=== PATIENT | female | born 1980 | race Caucasian/White ===

== ENCOUNTER 2017-05-20 16:45 | Emergency (ER) | payer SELFPAY ==
[2017-05-20 16:49] VITALS: BP 138/80; PULSE 95; RESP 18; O2SAT 98; BMI 31.8
--- NOTE | 2017-05-20 17:05 | ED PDOC ---
Arrival/HPI - General Chief Complaint: Female Genitourinary Time Seen by Provider: 05/20/17 16:49 Historian: Patient - History of Present Illness Narrative History of Present Illness (Text): 05/20/17 16:50 36 y/o female, no significant pmh, nkda, c/o vaginal discharge and painful bump on the vaginal region x 4 days. Pt. stated that she is sexually active with her only with no condoms. Pt. has been having painful vaginal lesions down on the vaginal region, admits also been having foul odor vaginal discharge for the past 3 days, no pelvic or abdominal pain, no night sweat, no dizziness, no change in vision, no other medical or psychological complaints. Past Medical History - Provider Review Nursing Documentation Reviewed: Yes - Psychiatric Hx Substance Use: No Family/Social History - Physician Review Nursing Documentation Reviewed: Yes Family/Social History: Unknown Family HX Smoking Status: Never Smoked Hx Alcohol Use: No Hx Substance Use: No Allergies/Home Meds Allergies/Adverse Reactions: Allergies No Known Allergies Allergy (Verified 05/20/17 16:49) Review of Systems - Review of Systems Constitutional: absent: Fatigue, Fevers Eyes: absent: Vision Changes ENT: absent: Hearing Changes Respiratory: absent: SOB, Cough Cardiovascular: absent: Chest Pain Gastrointestinal: absent: Abdominal Pain, Diarrhea, Nausea, Vomiting Musculoskeletal: absent: Arthralgias, Back Pain Skin: Rash, Skin Lesions. absent: Pruritis, Laceration, Abscess, Ulcer, Cellulitis Neurological: absent: Headache, Dizziness, Focal Weakness Physical Exam Vital Signs Reviewed: Yes Vital Signs Temp Pulse Resp BP Pulse Ox 05/20/17 17:21 99.1 F 05/20/17 16:46 99.9 F H 95 H 18 138/80 98 Temperature: Afebrile Blood Pressure: Normal Pulse: Regular Respiratory Rate: Normal Appearance: Positive for: Well-Appearing, Non-Toxic, Comfortable Pain Distress: Mild Mental Status: Positive for: Alert and Oriented X 3 - Systems Exam Head: Present: Atraumatic, Normocephalic Pupils: Present: PERRL Extroacular Muscles: Present: EOMI Conjunctiva: Present: Normal Mouth: Present: Moist Mucous Membranes Neck: Present: Normal Range of Motion Respiratory/Chest: Present: Clear to Auscultation, Good Air Exchange. No: Respiratory Distress, Accessory Muscle Use Cardiovascular: Present: Regular Rate and Rhythm, Normal S1, S2. No: Murmurs Abdomen: Present: Normal Bowel Sounds. No: Tenderness, Distention, Peritoneal Signs Genitourinary/Pelvic Exam: Present: Vaginal Discharge (foul smell clear and yellow), Vaginal Lesions (visible vesicular lesion noted on the labial major and minora), Cervical os Closed. No: Normal External Genitalia, Vaginal Bleeding, Adenexal Tenderness, Adenexal Mass, Cervical Motion Tendernes, Odor Back: Present: Normal Inspection Upper Extremity: Present: Normal Inspection. No: Cyanosis, Edema Lower Extremity: Present: Normal Inspection. No: Edema Neurological: Present: GCS=15, CN II-XII Intact, Speech Normal Skin: Present: Warm, Dry, Normal Color. No: Rashes Psychiatric: Present: Alert, Oriented x 3, Normal Insight, Normal Concentration Medical Decision Making ED Course and Treatment: 05/20/17 16:50 -UA/urine hcg -I discussed with the patient and offered gc/chlamydia prophylatic treatment including the BV treatment, refused HIV test, pt. agreed and self requested as well. -Rocephin/azithromycin/flagyl -Discharge home with valtrex, ibuprofen, notified all sexual partners for the STD testing and prophylatic treatments, use condom in the future, follow up with your own pmd and obgyn within 2 days, return to the ER for any new or worsening signs or symptoms. - Lab Interpretations Lab Results: Lab Results 05/20/17 17:00: Urine Color Yellow, Urine Appearance Clear, Urine pH 7.0, Ur Specific Sylvester 1.025, Urine Protein Negative, Urine Glucose (UA) Negative, Urine Ketones Negative, Urine Blood Trace-lysed H, Urine Nitrate Negative, Urine Bilirubin Negative, Urine Urobilinogen 0.2, Ur Leukocyte Esterase Small H , Urine RBC Pending, Urine WBC Pending I have reviewed the lab results: Yes Interpretation: Abnormal lab values (+UTI) - Medication Orders Current Medication Orders: Discontinued Medications Azithromycin (Zithromax) 1,000 mg PO STAT STA PRN Reason: Protocol Stop: 05/20/17 17:07 Last Admin: 05/20/17 17:15 Dose: 1,000 mg Ceftriaxone Sodium (Rocephin) 250 mg IM STAT STA PRN Reason: Protocol Stop: 05/20/17 17:07 Last Admin: 05/20/17 17:15 Dose: 250 mg Lidocaine HCl (Lidocaine 1% (20ml)) Confirm Administered Dose 20 ml .ROUTE .STK- MED ONE Stop: 05/20/17 17:15 Metronidazole (Flagyl) 2,000 mg PO STAT STA PRN Reason: Protocol Stop: 05/20/17 17:07 Last Admin: 05/20/17 17:15 Dose: 2,000 mg - PA / TIMBER SIZER / Resident Statement MD/DO has reviewed & agrees with the documentation as recorded. Disposition/Present on Arrival - Present on Arrival Any Indicators Present on Arrival: No History of DVT/PE: No History of Uncontrolled Diabetes: No Urinary Catheter: No History of Decub. Ulcer: No History Surgical Site Infection Following: None - Disposition Have Diagnosis and Disposition been Completed?: Yes Diagnosis: Herpes, Vaginal discharge, UTI (urinary tract infection) Disposition: HOME/ ROUTINE Disposition Time: 17:06 Patient Plan: Discharge Patient Problems: Current Active Problems Problem Status Onset Herpes Acute UTI (urinary tract infection) Acute Vaginal discharge Acute Condition: GOOD Additional Instructions: Discharge home with valtrex, ibuprofen, macrobid, notified all sexual partners for the STD testing and prophylatic treatments, use condom in the future, follow up with your own pmd and obgyn within 2 days, return to the ER for any new or worsening signs or symptoms. Prescriptions: Ibuprofen [Motrin Tab] 600 mg PO QID PRN #24 tab PRN Reason: Other Nitrofurantoin Macrocrystals [Macrobid] 100 mg PO BID #14 cap valACYclovir [Valtrex] 1 gm PO BID #20 tab Referrals: Pamela Adam, [Primary Care Provider] - Follow up with primary [facility] [Outside] - Follow up with primary [facility] [Outside] - Follow up with primary Marichuy Daniels MD [Medical Doctor] - Follow up with primary Forms: WORK NOTE
[2017-05-20] MEDS ORDERED: cefTRIAXone (Rocephin) 250 mg Inj IM STA (17:06)
[2017-05-20] MEDS ORDERED: Lidocaine 1% Inj (20ml) ONE (17:14)
[2017-05-20 17:22] VITALS: TEMP 99.1
[2017-05-20 17:38] LABS: URINE BILIRUBIN NEGATIVE (NEGATIVE); URINE BLOOD TRACE-LYSED (NEGATIVE); URINE GLUCOSE (UA) NEGATIVE (NEGATIVE); URINE LEUKOCYTE ESTERASE SMALL Leu/uL (NEGATIVE); URINE NITRATE NEGATIVE (NEGATIVE); URINE PROTEIN NEGATIVE mg/dL (<30 mg/dL); URINE UROBILINOGEN 0.2 E.U./dL (<1 E.U./dL)
[2017-05-20 17:59] LABS: URINE APPEARANCE CLEAR (CLEAR); URINE COLOR YELLOW (YELLOW)
[2017-05-20 19:01] LABS: URINE BACTERIA MOD (NEG)
== END 2017-05-20 18:27 | disposition home or self-care (01) ==
LOC: ED 16:45
DX: N39.0 Urinary tract infection, site not specified (principal); B00.9 Herpesviral infection, unspecified; N89.8 Other specified noninflammatory disorders of vagina
CPT/HCPCS: 81001; 87086; 96372; 99284; J0696